=== PATIENT | male | born 1965 | race Two or more races ===

== ENCOUNTER 2016-09-18 04:37 | Emergency (ER) | payer MEDICAID ==
[~2016-09-18] VITALS: Ht 180.3 cm; Wt 91.2 kg
[2016-09-18] MEDS ORDERED: NKM (04:49)
[2016-09-18] MEDS ORDERED: LORazepam Inj 2mg/ml 1ml IV ONE (05:00)
[2016-09-18] MEDS ORDERED: chlordiazePOXIDE 25mg Cap ORAL ONE (05:00)
[2016-09-18 05:02] VITALS: BP 137/83
[2016-09-18] MEDS ORDERED: LIBRIUM25 MG ORAL (05:06)
--- NOTE | 2016-09-18 05:06 | Emergency Room Report ---
History of Present Illness General Chief Complaint: General Complaint Source: Patient Present Illness HPI Is a 50-year-old male who is a heavy drinker. He presents with chief complaint of feeling dizzy and shaky. Last drink was 2 bottles of vodka around 5 PM. He woke up at 3 AM feeling shaky. [place] nauseous but no vomiting. No diarrhea. No suicidal thought homicidal thought. Denies any other complaint. He was in rehabilitation but many years ago. Allergies: Coded Allergies: No Known Allergies (Unverified , 09/18/16) Patient History Past Medical History: see triage record, old chart reviewed Past Surgical History: none Pertinent Family History: none Social History: Reports: alcohol use Immunizations: other Reviewed Nursing Documentation: PMH: Agreed, PSxH: Agreed Nursing Documentation-PMH Past Medical History: No Stated History Review of Systems Eye: Denies: blurred vision, eye pain ENT: Denies: ear pain, nose congestion, throat swelling Respiratory: Denies: cough, shortness of breath Cardiovascular: Denies: chest pain, palpitations Gastrointestinal: Denies: abdominal pain, diarrhea, nausea, vomiting Musculoskeletal: Denies: back pain, joint pain Skin: Denies: rash Neurological: Denies: headache, numbness Endocrine: Denies: increased thirst, increased urine Hematologic/Lymphatic: Denies: easy bruising All Other Systems: negative except mentioned in HPI Physical Exam Vital Signs Date Time Temp Pulse Resp B/P Pulse Ox O2 Delivery O2 Flow Rate FiO2 09/18/16 04:41 98.4 94 18 145/96 99 Room Air vitals normal Sp02 EP Interpretation: reviewed, normal General Appearance: well appearing, no apparent distress, alert Head: normocephalic, atraumatic Eyes: bilateral eye EOMI, bilateral eye PERRL ENT: hearing grossly normal, normal pharynx Neck: full range of motion, supple, no meningismus Respiratory: chest non-tender, lungs clear, normal breath sounds Cardiovascular #1: regular rate, rhythm, no murmur Gastrointestinal: normal bowel sounds, non tender, no mass, no organomegaly, no bruit, non-distended Musculoskeletal: back normal, gait/station normal, normal range of motion Psychiatric: mood/affect normal Skin: warm/dry Medical Decision Making Diagnostic Impression: Primary Impression: Alcohol withdrawal syndrome Qualified Codes: F10.230 - Alcohol dependence with withdrawal, uncomplicated ER Course Patient present with alcohol withdrawal symptoms. He has no tenderness here. He was to quit drinking. He said his body felt shaky. Not suicidal homicidal. This can be treated as an outpatient. Last Vital Signs Date Time Temp Pulse Resp B/P Pulse Ox O2 Delivery O2 Flow Rate FiO2 09/18/16 04:41 98.4 94 18 145/96 99 Room Air Status: improved Disposition: HOME, SELF-CARE Condition: Stable Scripts Chlordiazepoxide (Chlordiazepoxide HCl) 25 Mg Capsule 25 MG ORAL THREE TIMES A DAY, #15 CAP 0 Refills Prov: CLINTON DOMINGO M.D. 09/18/16 Additional Instructions: Abstain from alcohol. Followup with rehabilitation in 2-3 days. Return if worse. Followup with your Dr. in 2 to 3 days. CLINTON DOMINGO M.D. Sep 18, 2016 05:06
[2016-09-18 07:07] VITALS: BP 122/81
[2016-09-18 07:09] VITALS: BP 137/83
== END 2016-09-18 07:09 | disposition home or self-care (01) ==
LOC: EMR 04:59
DX: F10.230 Alcohol dependence with withdrawal, uncomplicated (principal)
CPT/HCPCS: 96361; 96374; 96375; 99284; J2405